=== PATIENT | female | born 1985 | race Caucasian/White ===

== ENCOUNTER 2019-08-19 12:27 | Emergency (ER) | payer OTHER ==
[2019-08-19] MEDS ORDERED: IPRATROPIUM BROM 0.5MG/2.5ML ONE (12:57)
[2019-08-19] MEDS ORDERED: ALBUTEROL 2.5 MG/3 ML NEB SOL ONE (12:57)
--- NOTE | 2019-08-19 13:30 | RAD REPORT ---
EXAM DESCRIPTION: Sabi Pa And Lat (2 Views)08/19/2019 1:19 pm CLINICAL HISTORY: Cough COMPARISON: None FINDINGS: Mild to moderate patchy left and mild patchy right lung opacities are present The heart is normal size IMPRESSION: Mild to moderate left and mild right patchy lung opacities probably pneumonia
[2019-08-19] MEDS ORDERED: LIDOCAINE 1% MPF 2 ML AMPULE ONE (13:51)
[2019-08-19] MEDS ORDERED: CEFTRIAXONE 1000 MG/VIAL ONE (13:51)
[2019-08-19] MEDS ORDERED: AZITHROMYCIN 250 MG TAB ONE (13:51)
[2019-08-19] MEDS ORDERED: predniSONE 20 MG TAB ONE (13:52)
--- NOTE | 2019-08-19 14:06 | ER ---
Nurse's Notes [facility] Name: Sara Hodges Age: 34 yrs Sex: Female : 1985 Arrival Date: 08/19/2019 Time: 12:29 Bed 20 Private MD: Diagnosis: Pneumonia, unspecified organism Presentation: 08/19 12:40 Presenting complaint: Patient states: cough, runny nose, nasal congestion that began on aa5 Saturday. Pt reports fever 100.0 F last night. Pt also reports SOB. 12:40 Acuity: JOIE 3 aa5 12:40 Transition of care: patient was not received from another setting of care. Onset of aa5 symptoms was July 2019. 12:40 Method Of Arrival: Ambulatory aa5 12:40 Risk Assessment: Do you want to hurt yourself or someone else? Patient reports no aa5 desire to harm self or others. Initial Sepsis Screen: Does the patient meet any 2 criteria? HR > 90 bpm. Does the patient have a suspected source of infection? No. Patient's initial sepsis screen is negative. Care prior to arrival: None. 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 - Social history:: Smoking status: Patient uses tobacco products, smokes one pack cigarettes per day. - Ebola Screening: : No symptoms or risks identified at this time. Screenin:50 Abuse screen: Denies threats or abuse. Denies injuries from another. Nutritional ca1 screening: No deficits noted. Tuberculosis screening: No symptoms or risk factors identified. Fall Risk None identified. Assessment: 12:50 General: Appears in no apparent distress. comfortable, Behavior is calm, cooperative, ca1 appropriate for age, Reports fever for 0-12 hours. Pain: Denies pain. Neuro: Level of Consciousness is awake, alert, obeys commands, Oriented to person, place, time, situation. Cardiovascular: Heart tones S1 S2 present Capillary refill < 3 seconds Patient's skin is warm and dry. Respiratory: Reports cough that is productive, since 4 days ago pain with cough Airway is patent Respiratory effort is even, unlabored, Respiratory pattern is regular, symmetrical, Breath sounds are clear bilaterally. GI: Abdomen is round non-distended, Bowel sounds present X 4 quads. Abd is soft and non tender X 4 quads. : No deficits noted. No signs and/or symptoms were reported regarding the genitourinary system. EENT: Reports nasal congestion nasal discharge that is watery. Derm: Skin is intact, is healthy with good turgor, Skin is pink, warm \T\ dry. Musculoskeletal: Circulation, motion, and sensation intact. Capillary refill < 3 seconds, Range of motion: intact in all extremities. 14:15 Reassessment: Patient appears in no apparent distress at this time. Patient is alert, ca1 oriented x 3, equal unlabored respirations, skin warm/dry/pink. Breathing treatment still ongoing, will be discharged once completed Patient states feeling better. Vital Signs: 12:40 BP 124 / 79; Pulse 97; Resp 18 S; Temp 98.1(O); Pulse Ox 100% on R/A; Weight 99.79 kg aa5 (R); Height 5 ft. 3 in. (160.02 cm) (R); 13:24 BP 131 / 92; Pulse 108; Resp 20; Temp 98.0(O); Pulse Ox 97% on R/A; mh5 14:15 BP 128 / 89; Pulse 105; Resp 19 S; Pulse Ox 98% on R/A; ca1 12:40 Body Mass Index 38.97 (99.79 kg, 160.02 cm) aa5 ED Course: 12:29 Patient arrived in ED. rg4 12:33 [facility]lez [facility]C [facility] kb 12:33 Sai Stein MD is Attending Physician. kb 12:40 Arm band placed on Patient placed in an exam room, on a stretcher. aa5 12:41 Nora Chan, ELVIRA is Primary Nurse. ca1 12:45 Triage completed. aa5 12:50 Patient has correct armband on for positive identification. Bed in low position. Call ca1 light in reach. Side rails up X 1. Pulse ox on. NIBP on. 13:02 Flu Sent. ca1 13:03 Patient moved to radiology via wheelchair. ca1 13:09 X-ray completed. Patient tolerated procedure well. Patient moved back from radiology. ml 13:10 Chest Pa And Lat (2 Views) XRAY In Process Unspecified. EDMS 14:17 No provider procedures requiring assistance completed. Patient did not have IV access ca1 during this emergency room visit. Administered Medications: 13:37 Drug: DuoNeb (3:1) (2.5 mg - 0.5 mg) 3 ml Route: Nebulizer; ca1 14:25 Follow up: Response: No adverse reaction; Marked relief of symptoms ca1 13:50 Drug: predniSONE 40 mg Route: PO; ca1 14:25 Follow up: Response: No adverse reaction ca1 13:51 Drug: Zithromax 500 mg Route: PO; ca1 14:25 Follow up: Response: No adverse reaction ca1 13:53 Drug: Rocephin (cefTRIAXone) 1 grams Route: IM; Site: right gluteus; ca1 14:25 Follow up: Response: No adverse reaction ca1 Outcome: 14:06 Discharge ordered by . kb 14:29 Discharged to home ambulatory. ca1 14:29 Condition: stable 14:29 Discharge instructions given to patient, Instructed on discharge instructions, follow up and referral plans. medication usage, Demonstrated understanding of instructions, follow-up care, medications, Prescriptions given X 4. 14:30 Patient left the ED. ca1 Signatures: Dispatcher [employer] EDMS Debby Glez, CARMELC PAYROLL ACCOUNTING CLERK-Griselda Juarez Audri, RN RN [email or web address] Amelie Car [facility] Nora Chan RN RN ca1
--- NOTE | 2019-08-19 14:06 | EDPHYS ---
Physician Documentation [facility] Name: Sara Hodges Age: 34 yrs Sex: Female : 1985 Arrival Date: 08/19/2019 Time: 12:29 Bed 20 Private MD: ED Physician Sai Stein HPI: 08/19 13:59 This 34 yrs old Female presents to ER via Ambulatory with complaints of kb Fever, Cough, Runny Nose. 14:02 The patient or guardian reports cough, that is intermittent, described as mild, with no kb sputum, flu symptoms, low-grade fever. Onset: The symptoms/episode began/occurred 4 day(s) ago. Severity of symptoms: At their worst the symptoms were moderate, in the emergency department the symptoms are unchanged. Modifying factors: The symptoms are alleviated by nothing, the symptoms are aggravated by nothing. Associated signs and symptoms: Pertinent positives: fever, rhinorrhea, sore throat. The patient has not experienced similar symptoms in the past. The patient has not recently seen a physician. Pt reports she developed a sore throat 4 days ago and it progressed to cough, congestion, runny nose and fever. Reports the sore throat resolved. . 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 - Social history:: Smoking status: Patient uses tobacco products, smokes one pack cigarettes per day. - Ebola Screening: : No symptoms or risks identified at this time. ROS: 14:01 Cardiovascular: Negative for chest pain, palpitations, and edema, Abdomen/GI: Negative kb for abdominal pain, nausea, vomiting, diarrhea, and constipation, Back: Negative for injury and pain, : Negative for injury, bleeding, discharge, and swelling, MS/Extremity: Negative for injury and deformity, Skin: Negative for injury, rash, and discoloration, Neuro: Negative for headache, weakness, numbness, tingling, and seizure. 14:01 Constitutional: Positive for chills, fever. 14:01 ENT: Positive for rhinorrhea, sinus congestion, sore throat. 14:01 Respiratory: Positive for cough, Negative for dyspnea on exertion, hemoptysis, orthopnea, pleurisy, shortness of breath, sputum production, wheezing. Exam: 14:04 Constitutional: This is a well developed, well nourished patient who is awake, alert, kb and in no acute distress. Head/Face: Normocephalic, atraumatic. ENT: Nares patent. No nasal discharge, no septal abnormalities noted. Tympanic membranes are normal and external auditory canals are clear. Oropharynx with no redness, swelling, or masses, exudates, or evidence of obstruction, uvula midline. Mucous membranes moist. Neck: Trachea midline, no thyromegaly or masses palpated, and no cervical lymphadenopathy. Supple, full range of motion without nuchal rigidity, or vertebral point tenderness. No Meningismus. Chest/axilla: Normal chest wall appearance and motion. Nontender with no deformity. No lesions are appreciated. Cardiovascular: Regular rate and rhythm with a normal S1 and S2. No gallops, murmurs, or rubs. Normal PMI, no JVD. No pulse deficits. Abdomen/GI: Soft, non-tender, with normal bowel sounds. No distension or tympany. No guarding or rebound. No evidence of tenderness throughout. Back: No spinal tenderness. No costovertebral tenderness. Full range of motion. Skin: Warm, dry with normal turgor. Normal color with no rashes, no lesions, and no evidence of cellulitis. MS/ Extremity: Pulses equal, no cyanosis. Neurovascular intact. Full, normal range of motion. Neuro: Awake and alert, GCS 15, oriented to person, place, time, and situation. Cranial nerves II-XII grossly intact. Motor strength 5/5 in all extremities. Sensory grossly intact. Cerebellar exam normal. Normal gait. 14:04 Respiratory: the patient does not display signs of respiratory distress, Respirations: normal, Breath sounds: rhonchi, that are moderate, are scattered. Vital Signs: 12:40 BP 124 / 79; Pulse 97; Resp 18 S; Temp 98.1(O); Pulse Ox 100% on R/A; Weight 99.79 kg aa5 (R); Height 5 ft. 3 in. (160.02 cm) (R); 13:24 BP 131 / 92; Pulse 108; Resp 20; Temp 98.0(O); Pulse Ox 97% on R/A; mh5 14:15 BP 128 / 89; Pulse 105; Resp 19 S; Pulse Ox 98% on R/A; ca1 12:40 Body Mass Index 38.97 (99.79 kg, 160.02 cm) aa5 MDM: 12:44 Patient medically screened. kb 13:59 Data reviewed: vital signs, nurses notes. Data interpreted: Pulse oximetry: on room air kb is 97 %. Interpretation: normal. Counseling: I had a detailed discussion with the patient and/or guardian regarding: the historical points, exam findings, and any diagnostic results supporting the discharge/admit diagnosis, lab results, radiology results, the need for outpatient follow up, a family practitioner, to return to the emergency department if symptoms worsen or persist or if there are any questions or concerns that arise at home. 13:59 ED course: Pt educated on results. No resp distress, pt is nontoxic appearing. Educated kb that we will start antibiotics here and she is to continue them at home. Educated to return immediately for worsening conditions, shortness of breath or any other concerns. Verbal understanding received. . 08/19 12:53 Order name: Flu; Complete Time: 13:42 kb 08/19 12:53 Order name: Chest Pa And Lat (2 Views) XRAY; Complete Time: 13:42 kb Administered Medications: 13:37 Drug: DuoNeb (3:1) (2.5 mg - 0.5 mg) 3 ml Route: Nebulizer; ca1 14:25 Follow up: Response: No adverse reaction; Marked relief of symptoms ca1 13:50 Drug: predniSONE 40 mg Route: PO; ca1 14:25 Follow up: Response: No adverse reaction ca1 13:51 Drug: Zithromax 500 mg Route: PO; ca1 14:25 Follow up: Response: No adverse reaction ca1 13:53 Drug: Rocephin (cefTRIAXone) 1 grams Route: IM; Site: right gluteus; ca1 14:25 Follow up: Response: No adverse reaction ca1 Disposition: 15:46 Co-signature as Attending Physician, Sai Stein MD I agree with the assessment and kdr plan of care. Disposition: 08/19/19 14:06 Discharged to Home. Impression: Pneumonia, unspecified organism. - Condition is Stable. - Discharge Instructions: Community-Acquired Pneumonia, Adult, [id number]. - Prescriptions for Augmentin 875- 125 mg Oral Tablet - take 1 tablet by ORAL route every 12 hours for 10 days; 20 tablet. Prednisone 20 mg Oral Tablet - take 1 tablet by ORAL route once daily for 5 days; 5 tablet. Albuterol Sulfate 90 mcg/actuation - inhale 1-2 puff by INHALATION route every 4-6 hours; 1 Inhaler. Zithromax 500 mg Oral Tablet - take 1 tablet by ORAL route once daily for 5 days; 5 tablet. - Medication Reconciliation Form, Thank You Letter, Antibiotic Education, Prescription Opioid Use form. - Follow up: Emergency Department; When: As needed; Reason: Worsening of condition. Follow up: Private Physician; When: 2 - 3 days; Reason: Recheck today's complaints, Continuance of care, Re-evaluation by your physician. Signatures: Dispatcher [employer] EDDebby Galvan, BACK HAND-C BACK HAND-Ckb Sai Stein MD MD [facility] Namrata Castillo RN RN aa5 Nora Chan RN RN ca1 Corrections: (The following items were deleted from the chart) 14:30 14:06 08/19/2019 14:06 Discharged to Home. Impression: Pneumonia, unspecified organism. ca1 Condition is Stable. Forms are Medication Reconciliation Form, Thank You Letter, Antibiotic Education, Prescription Opioid Use. Follow up: Emergency Department; When: As needed; Reason: Worsening of condition. Follow up: Private Physician; When: 2 - 3 days; Reason: Recheck today's complaints, Continuance of care, Re-evaluation by your physician. kb
[2019-08-19 14:37] VITALS: TEMP 98
[2019-08-19 14:39] VITALS: BP 128/89; O2SAT 98
== END 2019-08-19 14:30 | disposition home or self-care (01) ==
LOC: ER 12:27
DX: J18.9 Pneumonia, unspecified organism (principal); F17.210 Nicotine dependence, cigarettes, uncomplicated
CPT/HCPCS: 87804 ×2; 71046; 94640; 96372; 99284; J7512; J2001

== ENCOUNTER 2022-09-28 09:39 | Day surgery (SDC) | payer OTHER ==
[2022-09-27 15:58] LABS: Absolute Lymphocytes (CBC) 2.9 K/uL (0.7-4.9); Hematocrit 34.8 % (36.0-45.0); Lymphocytes % 32.5 % (15.3-44.8); MPV 7.6 fL (7.6-11.3); RBC Red Blood Cell Count 3.95 M/uL (3.86-4.86)
[2022-09-27 16:40] LABS: Albumin 3.6 g/dL (3.4-5.0); Bilirubin Total 0.2 mg/dL (0.2-1.0); Potassium 3.9 mmol/L (3.5-5.1); Protein, Total 6.9 g/dL (6.4-8.2)
[2022-09-28] MEDS ORDERED: Ringers Lactate 1,000 ML IV ONE (09:48)
[2022-09-28] MEDS ORDERED: CEFOXITIN SODIUM 1 GM/VIAL ONE (09:48)
[2022-09-28] MEDS ORDERED: LIDOCAINE 2% MPF 5 ML VIAL ONE (10:03)
[2022-09-28] MEDS ORDERED: ROCURONIUM 50 MG/5 ML VIAL IV ONE (10:03)
[2022-09-28] MEDS ORDERED: MIDAZOLAM HCL 2 MG/2 ML INJ ONE (10:03)
[2022-09-28] MEDS ORDERED: propofoL 200 MG/20 ML VIAL IV ONE (10:03)
[2022-09-28] MEDS ORDERED: FENTANYL CITR 100 MCG/2 ML ONE ×2 (10:03→11:45)
[2022-09-28] MEDS ORDERED: dexAMETHasone 4 MG/ML VIAL ONE (10:04)
[2022-09-28] MEDS ORDERED: ONDANSETRON 4 MG/2 ML VIAL ONE (10:04)
[2022-09-28] MEDS ORDERED: BUPIVACAINE 0.25% PF 30 ML VIAL ONE (10:41)
[2022-09-28 11:06] LABS: Urine Specific Gravity/Preg 1.025 (1.005-1.030)
[2022-09-28] MEDS ORDERED: KETOROLAC 30 MG/ML INJ ONE (11:46)
--- NOTE | 2022-09-28 11:59 | P.OP ---
Security Delivery Specialist: Karishma Hernandez Preoperative diagnosis: Cholelithiasis with Cholecystitis Postoperative diagnosis: Cholelithiasis with Cholecystitis Primary procedure: Laparoscopic cholecystectomy Anesthesia: GETA + Local Estimated blood loss: <5cc Specimen: Gallbladder Findings: Hydrops, impacted stone in neck, pus in GB Complications: None Transferred to: Recovery Room Condition: Good
[2022-09-28] MEDS ORDERED: NEOSTIGMINE 1 MG/ML -5 ML ONE (12:11)
[2022-09-28] MEDS ORDERED: GLYCOPYRROLATE 0.2 MG/ML SYR ONE (12:11)
[2022-09-28] MEDS: HYDROMORPHONE HCL 1 MG/ML INJ ONE ×2 (12:27→12:34)
[2022-09-28] MEDS ORDERED: HYDROCODONE/APAP 10/325 TAB ONE (13:34)
[2022-09-28 15:58] VITALS: BP 150/92; TEMP 97; O2SAT 99
--- NOTE | 2022-09-28 21:09 | OP ---
Date of Procedure: 09/28/2022 Surgeon: Joe Patton MD, Preoperative Diagnoses: Cholelithiasis and cholecystitis. Postoperative Diagnoses: Cholelithiasis and cholecystitis. Procedure Performed: Laparoscopic cholecystectomy with indocyanine green, ICG cholangiography. Anesthesia: General endotracheal plus local with 0.25% Marcaine. Estimated Blood Loss: Less than 5 cc. Specimen: Gallbladder. Findings: Hydropic gallbladder, impacted stone in the neck of the gallbladder, and purulent fluid co nsistent with pus within the gallbladder. Complications: None. The patient was transferred to recovery room in good condition. Procedure In Detail: After informed consent was obtained, the patient was brought to the operating r oom, prepped and draped in the usual sterile fashion and after adequate anesthesia was achieved, I pl aced an incision in the supraumbilical position, sharply incised the skin at this point after appropr iate anesthetizing with Marcaine. A 5 mm 0-degree optical trocar was introduced in the abdomen witho ut evidence of any complication. Insufflation was obtained to 15 mmHg at this time. There was no in jury to vital structure upon entry into the abdomen. At this point, the abdomen was insufflated to 1 5 mm and there was good anatomic visualization at this time. I then placed 2 additional trocars, one in the epigastrium and in the right upper quadrant. Both of these were similarly anesthetized, jayshree ply incised, and 5 mm trocars placed under direct visualization without evidence of any complication. The umbilical trocar was then upsized to a 12 mm under direct visualization without evidence of any complication. The patient was positioned head up right-side up position. Ratcheted grasper was use d to take the gallbladder and placed it towards the patient's right shoulder. There were significant omental attachments on the anterior surface of the gallbladder. These were taken down using electro cautery using hook cautery with minimal cautery affected. I dissected down to the Shirin pouch of the gallbladder and circumferentially dissected 2 structures and identified both cystic duct and cyst ic artery. Critical view of safety was obtained at this point. ICG cholangiography was performed at this time to ensure that the anatomic landmarks were visualized and these were visualized quite well with visualization of the cystic duct common duct junction with a normal length gallbladder anatomy. At this point, I then encircled the cystic duct and cystic artery and after these structures were c ompletely skeletonized, double titanium clips were placed, doubly on the distal side and singly on th e proximal side of both the cystic duct and cystic artery. These structures were then ligated using Endo Romelia. The gallbladder was then removed from the hepatic fossa with minimal electrocautery. T he gallbladder was placed in the Endo Catch bag, removed through the umbilical trocar, and sent off f or pathologic examination. The abdomen was re-insufflated at this point. Minimal hemostatic maneuve rs were required on the mid to distal aspect of the hepatic fossa. The area was copiously irrigated multiple times and suctioned out completely dry. The patient was positioned back in neutral position and remaining effluent was suctioned out and the 12 mm trocar site was then closed using a [facility] suture passer with 0 Vicryl in interrupted fashion with good approximation of tissues. The re maining trocars were removed under direct visualization without evidence of any complication. After the abdomen was completely desufflated, all skin sites were then copiously irrigated and closed with 4-0 Monocryl in a running fashion and Dermabond placed over top. The patient tolerated the procedure without evidence of any complication and transferred to PACU in good condition. All counts were cor rect at the end of the case. KETURAH/ERIN Voice ID: [id number] Report ID: [id number]
== END 2022-09-28 14:10 | disposition home or self-care (01) ==
LOC: OR 09:39
PROVIDERS: ATTEND Surgery
PROC: BF53200 Other Imaging of Gallbladder and Bile Ducts using Fluorescing Agent, Indocyanine Green Dye, Intraoperative (ICD-10-PCS; 2022-09-28)
PROC: 0FT44ZZ Resection of Gallbladder, Percutaneous Endoscopic Approach (ICD-10-PCS; principal; 2022-09-28 15:30)
DX: K80.10 Calculus of gallbladder with chronic cholecystitis without obstruction (principal); E66.01 Morbid (severe) obesity due to excess calories; K21.9 Gastro-esophageal reflux disease without esophagitis
CPT/HCPCS: 85025; 36415; 81025; 88304; 80053; 47563; J2704; J1100; J2001; J2250; J3010 ×2; J1170; J2710; J7120; J0694; J2405